=== PATIENT | female | born 1995 | race Caucasian/White ===

== ENCOUNTER 2017-01-26 01:33 | Emergency (ER) | payer OTHER ==
--- NOTE | 2017-01-26 01:43 | EDPHY ---
H & P Stated Complaint: Alcohol intoxication Source: EMS Exam Limitations: Intoxication Time Seen by Provider: 01/26/17 01:35 HPI/ROS: CHIEF COMPLAINT: Alcohol intoxication HISTORY OF PRESENT ILLNESS: This is a 21-year-old presenting to the emergency room via EMS. EMS reports patient was found down in the main bathroom at her door warm around 0056 by the dorm RA. EMS stated they did give her Narcan to rule out any opioid ingestion REVIEW OF SYSTEMS: Review of systems is unobtainable from this patient because of altered mentation due to alcohol intoxication (Viktoriya Dodge) - Physical Exam Exam: General Appearance: no distress. Eyes: Pupils equal and round no pallor or injection. ENT, Mouth: Mucous membranes moist. Respiratory: There are no retractions, lungs are clear to auscultation. Cardiovascular: Regular rate and rhythm. Gastrointestinal: Abdomen is soft nondistended Neurological: Obtunded. Patient response to sternal rub with purposeful movement Skin: Warm and dry, no rashes. Musculoskeletal: Neck is supple . Extremities: symmetrical, purposeful full range of motion. (Viktoriya Dodge) Constitutional: Initial Vital Signs Temperature (C) 36.3 C 01/26/17 01:53 Heart Rate 65 01/26/17 01:53 Respiratory Rate 16 01/26/17 01:53 Blood Pressure 112/52 L 01/26/17 01:53 O2 Sat (%) 97 01/26/17 01:53 O2 Delivery Mode Room Air Allergies/Adverse Reactions: Unable to Assess Allergy (Verified 01/26/17 01:54) Home Medications: Medication Instructions Recorded Unobtainable 01/26/17 Medical Decision Making ED Course/Re-evaluation: ED plan of care: IV fluids, CBC, CMP, ETOH level. 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 0550 Patient is now awake and appropriate. Ambulating unassisted to the bathroom. No current complaints. She has sober friends here to take her home. (Rajan Antonio) Differential Diagnosis: Other differential diagnosis considered but not limited to (Viktoriya Dodge) - Data Points Laboratory Results: Laboratory Results 01/26/17 01:30 01/26/17 01:30 Sodium 149 mEq/L H mEq/L (134-144) Potassium 4.1 mEq/L mEq/L (3.5-5.2) Chloride 111 mEq/L H mEq/L (97-110) Carbon Dioxide 23 mEq/l mEq/l (22-31) Anion Gap 15 mEq/L mEq/L (8-16) BUN 11 mg/dL mg/dL (7-23) Creatinine 0.7 mg/dL mg/dL (0.6-1.0) Estimated GFR > 60 Glucose 102 mg/dL H mg/dL (70-100) Calcium 9.4 mg/dL mg/dL (8.5-10.4) Ethyl Alcohol 262 mg/dL H mg/dL (0-10) Departure - Departure Disposition: Home, Routine, Self-Care Clinical Impression: Alcoholic intoxication Condition: Good Instructions: Alcohol Intoxication (ED) Additional Instructions: Please try to avoid binge drinking alcohol. Referrals: Patient,NotPresent [Primary Care Provider] - As per Instructions
[2017-01-26] MEDS ORDERED: ONDANSETRON 4 MG/2 ML VIAL ONE (01:44)
[2017-01-26 01:54] VITALS: RESP 16
[2017-01-26 02:02] LABS: ANION GAP 15 mEq/L (8-16); CALCIUM 9.4 mg/dL (8.5-10.4); CARBON DIOXIDE 23 mEq/l (22-31); CHLORIDE 111 mEq/L (97-110); CREATININE 0.7 mg/dL (0.6-1.0); ETHANOL SERUM 262 mg/dL (0-10); GLOMERULAR FILTRATION RATE > 60; GLUCOSE 102 mg/dL (70-100); POTASSIUM 4.1 mEq/L (3.5-5.2); SODIUM 149 mEq/L (134-144)
[2017-01-26 05:55] VITALS: BP 107/68; PULSE 79; TEMP 97.9; O2SAT 96
== END 2017-01-26 05:55 | disposition home or self-care (01) ==
DX: F10.129 Alcohol abuse with intoxication, unspecified (principal)
CPT/HCPCS: G0480; J2405

== ENCOUNTER 2017-09-05 20:29 | Emergency (ER) | payer BC ==
[2017-09-05 20:52] VITALS: RESP 18
--- NOTE | 2017-09-05 21:26 | EDPHY ---
H & P Stated Complaint: RLQ pain x 2 weeks with nausea Time Seen by Provider: 09/05/17 21:16 HPI/ROS: CHIEF COMPLAINT: Right-sided abdominal pain x1 weeks HISTORY OF PRESENT ILLNESS: 22-year-old immunocompetent female no prior history of abdominal surgeries or chronic abdominal pathology complaining of 1 week of right-sided abdominal pain. No nausea or vomiting. No radiation. No urinary abnormality. Bowel movements normal. Atraumatic. Last menstrual period 1 week ago. REVIEW OF SYSTEMS: A ten point review of systems was performed and is negative with the exception of the items mentioned in the HPI PAST MEDICAL & SURGICAL HISTORY: No pertinent medical or surgical history SOCIAL HISTORY:Student PHYSICAL EXAM (Prior to examination, patient consented to physical exam, hands were washed and my usual and customary physical exam procedures followed) 1) GENERAL: Well-developed, well-nourished, alert and oriented. Appears to be in no acute distress. 2) HEAD: Normocephalic, atraumatic 3) HEENT: Pupils equal, round, reactive to light bilaterally. Sclera anicteric. Nasopharynx, oropharynx, clear, no lesions. Ears bilaterally with normal tympanic membranes. 4) NECK: Full range of motion, no meningeal signs. 5) LUNGS: Clear auscultation bilaterally, no wheezes, no rhonchi, no retractions. 6) HEART: Regular rate and rhythm, no murmur, no heave, no gallop. 7) ABDOMEN: No guarding, no rebound, no focal tenderness, mild tenderness to palpation right lower quadrant negative Vega's, negative Rovsing's, negative peritoneal sign, 8) MUSCULOSKELETAL: Moving all extremities, no focal areas of tenderness, no obvious trauma. No peripheral edema or discoloration. 9) BACK: No CVA tenderness, no midline vertebral tenderness, no fluctuance, no step-off, no obvious trauma, no visual or palpable abnormality. 10) SKIN: No rash, no petechiae. 11) Psychiatric: Patient is oriented X 3, there is no agitation. DIFFERENTIAL DIAGNOSIS: My differential diagnosis includes, but is not limited to, acute appendicitis, acute cholecystitis, bowel obstruction, acute pancreatitis, ovarian torsion, ectopic , gastritis and urinary tract infection. The patient understands that this diagnosis is provisional and can never be 100% accurate. This is a partial list of diagnoses considered. These considerations are based on history, physical exam, past history and reassessment. - Personal History LMP (Females 10-55): 1-7 Days Ago Current Tetanus/Diphtheria Vaccine: Yes Current Tetanus Diphtheria and Acellular Pertussis (TDAP): Yes - Medical/Surgical History Hx Asthma: No Hx Chronic Respiratory Disease: No Hx Diabetes: No Hx Cardiac Disease: No Hx Renal Disease: No Hx Cirrhosis: No Hx Alcoholism: No Hx HIV/AIDS: No Hx Splenectomy or Spleen Trauma: No Other PMH: denies. cyst removal - Social History Smoking Status: Never smoked Constitutional: Initial Vital Signs Temperature (C) 37.1 C 09/05/17 20:47 Heart Rate 96 09/05/17 20:47 Respiratory Rate 18 09/05/17 20:47 Blood Pressure 127/91 H 09/05/17 20:47 O2 Sat (%) 97 09/05/17 20:47 O2 Delivery Mode Room Air Allergies/Adverse Reactions: Sulfa (Sulfonamide Antibiotics) Allergy (Verified 09/05/17 20:49) Home Medications: Medication Instructions Recorded NK [No Known Home Meds] 09/05/17 Medical Decision Making - Diagnostics Imaging Results: Imaging Impressions Pelvic/Renal Ultrasound 09/05/17 21:24 Impression: Trace free fluid in the cul-de-sac which is nonspecific. Otherwise, normal pelvic ultrasound. Dr. Gray discussed these findings by telephone with Branden Park on 0:05. Abdomen Ultrasound 09/05/17 21:25 Impression: Normal abdominal ultrasound. Dr. Gray discussed these findings by telephone with Branden Park on 0:05. Dear images reviewed by myself ED Course/Re-evaluation: Patient was re-evaluated with serial examinations was recently at 12:20 a.m.. Discussed her imaging results with her. I re-examined her. She has is a soft abdomen, no guarding or rebound, no McBurney's point pain. Appendix is not visualized on ultrasound. At this time, in the presence of normal white blood cell count, symptoms for 1-2 weeks, no current focal tenderness, I think that acute appendicitis is less than likely. However, informed her that I could not fully rule this out. I discussed options including [address] imaging now. She would like to be discharged home. I believe her to have decision- making capacity. I recommend she return to the ER in 12 hr for recheck. Definitely should she develop new or worsening symptoms to return to the ER sooner. - Data Points Laboratory Results: Laboratory Results 09/05/17 21:37 09/05/17 21:37 09/05/17 09/05/17 09/05/17 21:37 21:37 21:37 WBC RBC Hgb Hct MCV MCH MCHC RDW Plt Count MPV Neut % (Auto) Lymph % (Auto) [place] % (Auto) Eos % (Auto) Baso % (Auto) Nucleat RBC Rel Count Absolute Neuts (auto) Absolute Lymphs (auto) Absolute Monos (auto) Absolute Eos (auto) Absolute Basos (auto) Absolute Nucleated RBC Immature Gran % Immature Gran # Sodium 139 mEq/L mEq/L (134-144) Potassium 3.6 mEq/L mEq/L (3.5-5.2) Chloride 103 mEq/L mEq/L (97-110) Carbon Dioxide 22 mEq/l mEq/l (22-31) Anion Gap 14 mEq/L mEq/L (8-16) BUN 15 mg/dL mg/dL (7-23) Creatinine 0.8 mg/dL mg/dL (0.6-1.0) Estimated GFR > 60 Glucose 81 mg/dL mg/dL (70-100) Calcium 9.8 mg/dL mg/dL (8.5-10.4) Total Bilirubin 0.4 mg/dL mg/dL (0.1-1.4) Conjugated Bilirubin 0.2 mg/dL mg/dL (0.0-0.5) Unconjugated Bilirubin 0.2 mg/dL mg/dL (0.0-1.1) AST 21 IU/L IU/L (14-46) ALT 30 IU/L IU/L (9-52) Alkaline Phosphatase 71 IU/L IU/L (38-126) Total Protein 7.9 g/dL g/dL (6.3-8.2) Albumin 4.6 g/dL g/dL (3.5-5.0) Lipase 89 IU/L IU/L (23-300) Beta HCG, Qual NEGATIVE Urine Color YELLOW Urine Appearance CLEAR Urine pH 5.0 (5.0-7.5) Ur Specific [place] 1.034 H (1.002-1.030) Urine Protein 1+ H (NEGATIVE) Urine Ketones 1+ H (NEGATIVE) Urine Blood NEGATIVE (NEGATIVE) Urine Nitrate NEGATIVE (NEGATIVE) Urine Bilirubin NEGATIVE (NEGATIVE) Urine Urobilinogen NEGATIVE EU EU (0.2-1.0) Ur Leukocyte Esterase NEGATIVE (NEGATIVE) Urine RBC NONE SEEN /hpf /hpf (0-3) Urine WBC 1-3 /hpf /hpf (0-3) Ur Epithelial Cells TRACE /lpf /lpf (NONE-1+) Urine Mucus 3+ /lpf H /lpf (NONE-1+) Urine Glucose NEGATIVE (NEGATIVE) 09/05/17 21:37 WBC 8.43 10^3/uL 10^3/uL (3.80-9.50) RBC 4.85 10^6/uL 10^6/uL (4.18-5.33) Hgb 14.7 g/dL g/dL (12.6-16.3) Hct 41.8 % % (38.0-47.0) MCV 86.2 fL fL (81.5-99.8) MCH 30.3 pg pg (27.9-34.1) MCHC 35.2 g/dL g/dL (32.4-36.7) RDW 12.4 % % (11.5-15.2) Plt Count 263 10^3/uL 10^3/uL (150-400) MPV 10.4 fL fL (8.7-11.7) Neut % (Auto) 51.0 % % (39.3-74.2) Lymph % (Auto) 41.8 % % (15.0-45.0) [place] % (Auto) 5.7 % % (4.5-13.0) Eos % (Auto) 0.4 % L % (0.6-7.6) Baso % (Auto) 0.9 % % (0.3-1.7) Nucleat RBC Rel Count 0.0 % % (0.0-0.2) Absolute Neuts (auto) 4.30 10^3/uL 10^3/uL (1.70-6.50) Absolute Lymphs (auto) 3.52 10^3/uL H 10^3/uL (1.00-3.00) Absolute Monos (auto) 0.48 10^3/uL 10^3/uL (0.30-0.80) Absolute Eos (auto) 0.03 10^3/uL 10^3/uL (0.03-0.40) Absolute Basos (auto) 0.08 10^3/uL 10^3/uL (0.02-0.10) Absolute Nucleated RBC 0.00 10^3/uL 10^3/uL (0-0.01) Immature Gran % 0.2 % % (0.0-1.1) Immature Gran # 0.02 10^3/uL 10^3/uL (0.00-0.10) Sodium Potassium Chloride Carbon Dioxide Anion Gap BUN Creatinine Estimated GFR Glucose Calcium Total Bilirubin Conjugated Bilirubin Unconjugated Bilirubin AST ALT Alkaline Phosphatase Total Protein Albumin Lipase Beta HCG, Qual Urine Color Urine Appearance Urine pH Ur Specific C[place] Urine Protein Urine Ketones Urine Blood Urine Nitrate Urine Bilirubin Urine Urobilinogen Ur Leukocyte Esterase Urine RBC Urine WBC Ur Epithelial Cells Urine Mucus Urine Glucose Departure - Departure Disposition: Home, Routine, Self-Care Clinical Impression: Abdominal pain Qualifiers: Abdominal location: right lower quadrant Qualified Code(s): R10.31 - Right lower quadrant pain Condition: Good Instructions: Acute Abdominal Pain (ED) Additional Instructions: Seek immediate medical attention if you develop new or worsening symptoms, if you develop fevers, chills, inability to tolerate oral intake or any other symptoms that concerns you. Referrals: Return, to the ER in 12 hr for recheck [Other] - As per Instructions
[2017-09-05 21:57] LABS: % IMMATURE GRANULYOCYTES 0.2 % (0.0-1.1); ABSOLUTE IMMATURE GRANULOCYTES 0.02 10^3/uL (0.00-0.10); ADD DIFF? NO; ADD MORPH? NO; ADD SCAN? NO; ATYPICAL LYMPHOCYTE FLAG 10 (0-99); FRAGMENT RBC FLAG 0 (0-99); HEMATOCRIT 41.8 % (38.0-47.0); HEMOGLOBIN 14.7 g/dL (12.6-16.3); LEFT SHIFT FLG 0 (0-99); LIPEMIA HEMOLYSIS FLAG 90 (0-99); MEAN CELL HEMOGLOBIN 30.3 pg (27.9-34.1); MEAN CELL HEMOGLOBIN CONCENTR. 35.2 g/dL (32.4-36.7); MEAN CELL VOLUME 86.2 fL (81.5-99.8); MEAN PLATELET VOLUME 10.4 fL (8.7-11.7); PLATELET CLUMPS FLAG 20 (0-99); PLATELET COUNT 263 10^3/uL (150-400); RED BLOOD CELL COUNT 4.85 10^6/uL (4.18-5.33); RED CELL DISTRIBUTION WIDTH 12.4 % (11.5-15.2)
[2017-09-05 22:01] LABS: COLOR YELLOW; LEUKOCYTE ESTERASE,URINE NEGATIVE (NEGATIVE); NITRITE,URINE NEGATIVE (NEGATIVE)
[2017-09-05 22:03] LABS: ALANINE AMINOTRANSFERASE 30 IU/L (9-52); ALBUMIN 4.6 g/dL (3.5-5.0); ALKALINE PHOSPHATASE 71 IU/L (38-126); ANION GAP 14 mEq/L (8-16); ASPARTATE AMINOTRANSFERASE 21 IU/L (14-46); BILIRUBIN,TOTAL 0.4 mg/dL (0.1-1.4); BILIRUBIN-CONJUGATED 0.2 mg/dL (0.0-0.5); BILIRUBIN-UNCONJUGATED 0.2 mg/dL (0.0-1.1); CALCIUM 9.8 mg/dL (8.5-10.4); CARBON DIOXIDE 22 mEq/l (22-31); CHLORIDE 103 mEq/L (97-110); CREATININE 0.8 mg/dL (0.6-1.0); GLOMERULAR FILTRATION RATE > 60; GLUCOSE 81 mg/dL (70-100); POTASSIUM 3.6 mEq/L (3.5-5.2); SODIUM 139 mEq/L (134-144); TOTAL PROTEIN 7.9 g/dL (6.3-8.2)
[2017-09-05 22:06] LABS: MUCUS 3+ /lpf (NONE-1+)
[2017-09-05 22:09] LABS: RBC,URINE NONE SEEN /hpf (0-3)
[2017-09-06 00:45] VITALS: BP 110/59; PULSE 95; TEMP 97.7; O2SAT 96
== END 2017-09-06 00:44 | disposition home or self-care (01) ==
DX: R10.31 Right lower quadrant pain (principal)

== ENCOUNTER 2018-12-01 15:30 | Emergency (ER) | payer BC ==
--- NOTE | 2018-12-01 16:05 | EDPHY ---
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 She has been experiencing periodic episodes of chest pain, lasting two minutes, occurring every two hours for the past two months. The pain might be an aching sensation involving her entire chest or might be a sharp more localized sensation. Today the pain began in the morning and has not gone away. She has take tylenol with no relief. She has had no recent illnesses, no chest trauma, no travel. NO calf pain or swelling. She denies feeling short of breath. There is no radiation of the pain. She has not had fever or cough. No FH of CAD of VTE. She takes BCPs. She was seen at [facility] urgent care ot [address] and was told that her EKG was abnorma.l She does not have a copy of this ekg. REVIEW OF SYSTEMS: A ten system review of systems was performed and is negative with the exception of the items mentioned in the HPI. Past medical history: Negative Past surgical history: Cyst removal Family history: No early CAD or sudden cardiac . Social history: She is a student. Social ETOH. General Appearance: Alert. Vital signs reviewed. BP 147/100. BP 124/86 at DC. Eyes: Pupils equal and round, no conjunctival injection, no discharge. Anicteric. ENT, Mouth: Mucous membranes are moist, no oropharyngeal erythema or edema. Neck: No lymphadenopathy, supple. Respiratory: Lungs are clear to auscultation; no wheezes, rales, or rhonchi. Cardiovascular: Regular rate and rhythm; no murmur, rub, or gallop. Gastrointestinal: Abdomen is soft and nontender, no masses or organomegaly, bowel sounds normal. Skin: Warm and dry, no rashes on exposed skin, normal color. Back: Nontender to palpation over the thoracolumbar spine. No CVAT. Extremities: No lower extremity edema, no calf tenderness or swelling. Neurological: Alert and oriented. Moving all four extremities easily and equally. Psychiatric: Normal affect. - Personal History LMP (Females 10-55): 1-7 Days Ago Current Tetanus/Diphtheria Vaccine: Unsure Current Tetanus Diphtheria and Acellular Pertussis (TDAP): Unsure - Medical/Surgical History Hx Asthma: No Hx Chronic Respiratory Disease: No Hx Diabetes: No Hx Cardiac Disease: No Hx Renal Disease: No Hx Cirrhosis: No Hx Alcoholism: No Hx HIV/AIDS: No Hx Splenectomy or Spleen Trauma: No Other PMH: denies. cyst removal - Social History Smoking Status: Never smoked Constitutional: Initial Vital Signs Temperature (C) 36.6 C 12/01/18 15:33 Heart Rate 93 12/01/18 15:33 Respiratory Rate 18 12/01/18 15:33 Blood Pressure 147/100 H 12/01/18 15:33 O2 Sat (%) 95 12/01/18 15:33 O2 Delivery Mode Room Air Allergies/Adverse Reactions: Sulfa (Sulfonamide Antibiotics) Allergy (Verified 12/01/18 15:33) Home Medications: Medication Instructions Recorded NK [No Known Home Meds] 09/05/17 Medical Decision Making - Diagnostics EKG Interpretation: 12 lead EKG is interpreted in [place] by emergency department physician. Sinus rhythm. QTCc 479, per machine reading. No acute ischemic findings. Nothing to suggest pericarditis. ED Course/Re-evaluation: Patient with intermittent chest pain, referred because of reportedly abnormal EKG at urgent care. She does not have a copy of this EKG and urgent care is closed, so I do not know what what seen on the tracing. EKG here shows sinus rhythm, no ischemic changes. Corrected QTC of 479, interpreted as borderline prolonged. Prolonged QT in women is over 480 (per Up to Date, cardiology guidelines). I agree with the machine interpretation of QT. This patient has no symptoms of prolonged QT--no palpitations, syncope, and certainly no sudden . No family history of any cardiac problems. She denies use of illicit drugs. Chest pain is not associated with prolonged QT. We discussed further work-up, which would include electrolyte measurements, including magnesium. She would like to avoid any further ED evaluation and agrees to follow up with financial service rep (referral provided). Danger signs reviewed. She understands that there might be a risk of arrhythmia, including sudden . I think this unlikely in this situation. I do not have an explanation for her intermittent chest pain and recommend NSAIDs. I find no evidence of pericarditis on EKG or exam. I do not suspect ACS. No pneumonia or ptx suspected. I do not think she has PE, she is low risk , Wells Score zero. Her initial high blood pressure improved significantly while in ED. Differential Diagnosis: Chest pain including but not limited to myocardial ischemia, pulmonary embolus, chest wall pain, pleural inflammation and pulmonary infectious causes. Departure - Departure Disposition: Home, Routine, Self-Care Clinical Impression: Chest pain Condition: Good Instructions: Chest Pain (ED) Additional Instructions: As you know, the cause of your chest pain is unknown. I do not suspect a problem with your heart. I do not suspect a pneumonia. There are several things that can cause you to have intermittent chest pain, most of them are not dangerous. I do not think that you have a dangerous or life-threatening problem. I will refer you to a financial service rep and advise you to schedule an appointment if you have continued pain. Adult Pain & Fever Control: We recommend Acetaminophen (Tylenol) and Ibuprofen (Motrin,Advil) for pain and fever control. When fever is high or pain severe, both drugs can be used at the same time, but at different intervals. Please note the time differences. Your dose is: Acetaminophen 650mg every 4 to 6 hours Ibuprofen 400mg every 6 hours with food OR Note: do not take Acetaminophen with Hydrocodone (Vicodin, Lortab) or Oycodone (Percocet). These medications also contain Acetaminophen. No more than 3000mg of Acetaminophen should be taken in 24 hours (for an adult). Referrals: Annette Ernandez MD [Medical Doctor] - As per Instructions
[2018-12-01 17:58] VITALS: BP 124/86
--- NOTE | 2018-12-01 23:32 | CPEKG ---
Test Reason : OPEN Blood Pressure : / mmHG Vent. Rate : 094 BPM Atrial Rate : 094 BPM P-R Int : 127 ms QRS Dur : 084 ms QT Int : 383 ms P-R-T Axes : 012 080 017 degrees QTc Int : 479 ms Sinus rhythm Borderline prolonged QT interval Confirmed by Judith Weiss ([id number]) on 12/01/2018 11:32:00 PM Referred By: PHYSICIAN ED Confirmed By:Judith Weiss
== END 2018-12-01 17:59 | disposition home or self-care (01) ==
DX: R07.9 Chest pain, unspecified (principal)